=== PATIENT | female | born 1995 | race Caucasian/White ===

== ENCOUNTER 2019-10-16 11:05 | Emergency (ER) | payer BC, SELFPAY ==
--- NOTE | ~2019-10-16 | CT_ITS ---
EXAMINATION: CT abd pelvis lumbar w con DATE: 10/16/2019 12:29 INDICATION: Abdominal pain, low back pain. TECHNIQUE: Computed tomography (CT) of the abdomen and pelvis was performed with 100 cc Omnipaque 350 intravenous contrast. Automated exposure control and iterative reconstruction technique were employe d. Exam dose: 1461.75 mGy-cm total exam DLP. COMPARISON: 11/16/2017 CT abdomen pelvis FINDINGS: Minimal left lower lobe dependent atelectasis. The lung bases are otherwise clear. Normal heart size. No pericardial or pleural effusion. The liver, gallbladder, bile ducts, pancreas, pancreatic duct, spleen, and adrenal glands and kidneys are unremarkable. Normal caliber of the abdominal aorta. No intraperitoneal or retroperitoneal or pelvic mass lesion or adenopathy or ascites. Normal appendix. No bowel obstruction, bowel wall thickening, pneumatosis or intraperitoneal free air . The uterus, adnexal areas and urinary bladder are unremarkable. There is prominent posterior inferior spurring of the L1 vertebral body, encroaching upon the anterio r aspect of the spinal canal. Moderately severe degenerative disc disease is noted at L3-4. IMPRESSION: Moderately severe degenerative disc disease at L3-4 Prominent L1 vertebral body posteroinferior spur Reviewed, dictated and finalized at [facility]. Reviewed, dictated and finalized at [facility].
[2019-10-16 11:09] VITALS: BP 152/92; PULSE 102; RESP 22; TEMP 36.8; O2SAT 98
[2019-10-16 11:48] LABS: Basophils Absolute Auto 0.1 K/mm3 (0.0-0.1); Basophils Percent Auto 0.6 % (0.2-1.2); Eosinophils Absolute Auto 0.4 K/mm3 (0-0.3); Eosinophils Percent Auto 5.1 % (0-4.4); Hematocrit 41.4 % (37.0-47.0); Hemoglobin 13.7 g/dL (12.0-15.0); Immature Granulocyte Absolute 0.03 K/mm3 (0.00-0.031); Immature Granulocyte Percent A 0.4 % (0-0.5); Lymphocytes Absolute Auto 1.57 K/mm3 (0.9-3.2); Lymphocytes Percent Auto 19.9 % (18.3-44.2); Mean Corpuscular HGB Conc 33.1 g/dl (32-36); Mean Corpuscular Hemoglobin 29.1 pg (26-34); Mean Corpuscular Volume 88.1 fl (80-100); Mean Platelet Volume 9.9 fl (7.4-10.4); Monocytes Absolute Auto 0.6 K/mm3 (0.1-0.6); Monocytes Percent Auto 7.1 % (2.6-8.5); Neutrophils Absolute Auto 5.3 K/mm3 (1.3-6.7); Neutrophils Percent Auto 66.9 % (45.5-73.1); Platelet Count Result 194 k/mm3 (150-375); Red Cell Distribution Width 14.8 % (11.5-14.5); White Blood Count 7.9 K/mm3 (4.5-10.0)
[2019-10-16] MEDS: KETOROLAC 30 MG/ML VIAL (*BKC) IV PUSH (11:56)
[2019-10-16 11:59] LABS: Alanine Aminotransferase 18 U/L (4-35); Albumin Level 4.1 g/dL (3.5-5.1); Alkaline Phosphatase 73 U/L (38-126); Aspartate Amino Transferase 21 U/L (14-36); Bilirubin,Total 0.3 mg/dL (0.2-1.3); Blood Urea Nitrogen 11 mg/dL (7-17); Calcium 8.6 mg/dL (8.4-10.2); Carbon Dioxide 22 mmol/L (22-30); Chloride 105 mmol/L (98-107); Estimated CRCL calculation 162 ml/min; Estimated Glomerular Filt Rate > 60; Glucose 105 mg/dL (65-105); Sodium 136 mmol/L (137-145)
[2019-10-16 11:59] LABS: Add Urine Microscopic? NO; Appearance Urine Clear (Clear); Bilirubin Urine Negative (Negative); Blood Urine Negative (Negative); Color Urine Yellow (Yellow); Glucose Urine UA Negative (Negative); Ketones Urine Negative (Negative); Leukocyte Esterase Ur Negative LEU/UL (Negative); Nitrate Urine Negative (Negative); Protein Urine Negative (Negative); Specific Grav Ur 1.016 (1.001-1.035); Urobilinogen Urine Negative mg/dL (<2.0)
[2019-10-16 12:03] LABS: CRP 1.5 mg/dL (<1.0)
--- NOTE | 2019-10-16 12:21 | ED.BACK ---
HPI - Back Pain/Injury General Chief Complaint: Back Pain/Injury <Nhan Hammond PA-C - Last Filed: 10/16/19 13:58> Stated Complaint: low back pain <Nhan Hammond PA-C - Last Filed: 10/16/19 13:58> Time Seen by Provider: 10/16/19 11:14 <Nhan Hammond PA-C - Last Filed: 10/16/19 13:58> Source: patient <Nhan Hammond PA-C - Last Filed: 10/16/19 13:58> Mode of arrival: ambulatory <Nhan Hammond PA-C - Last Filed: 10/16/19 13:58> Limitations: no limitations <Nhan Hammond PA-C - Last Filed: 10/16/19 13:58> History of Present Illness HPI Narrative: Patient is a 23-year-old female who presents with low back pain that has been present for 2 months patient denies injury or trauma had been seeing a chiropractor with no improvement patient notes over the last week the pain has intensified patient has tried [id number] medications with minimal improvement pain radiates into the right thigh patient denies injury or trauma or recent illness pain is worse with activity and movement patient is localized to the midline lower lumbar region <Nhan Hammond PA-C - Last Filed: 10/16/19 13:58> Related Data Allergies/Adverse Reactions: Allergies Allergy/AdvReac Type Severity Reaction Status Date / Time latex Allergy Rash Verified 10/16/19 11:20 menthol [From Icy Hot] Allergy Rash Verified 10/16/19 11:20 methyl salicylate Allergy Rash Verified 10/16/19 11:20 [From Icy Hot] <Nhan Hammond PA-C - Last Filed: 10/16/19 13:58> Review of Systems Review of Systems: All systems reviewed & are unremarkable except as noted in HPI and below <Nhan Hammond PA-C - Last Filed: 10/16/19 13:58> PMFSH Past Medical History Medical History: Medical History (Updated 10/16/19 @ 13:57 by Nhan Hammond PA-C) Obesity <Nhan Hammond PA-C - Last Filed: 10/16/19 13:58> Social History Social History: Social History (Updated 07/25/20 @ 12:23 by Nhan Hammond PA-C) Smoking status: Never smoker <Nhan Hammond PA-C - Last Filed: 10/16/19 13:58> Exam Narrative: Exam Narrative: GENERAL: Well-appearing, obese, and in no acute distress. HEAD: Normocephalic, atraumatic. EYES: PERRLA and EOMI. ENT: Nares clear, no rhinorrhea or epistaxis. Mucous membranes moist. CHEST: Clear to auscultation. No respiratory distress. No wheezes rales or rhonchi HEART: Regular rate and rhythm. No murmur heard. Normal peripheral pulses. ABDOMEN: Soft, nontender, nondistended EXTREMITIES: Normal range of motion. No edema. Midline lumbar tenderness to palpation no deformities noted SKIN: Warm, dry, no rash. NEURO: No focal deficits. Alert and oriented x3. Cranial nerves II through XII gross PSYCH: Normal mood and affect. <Nhan Hammond PA-C - Last Filed: 10/16/19 13:58> Course Course Emergency Course: Patient in the room in no distress aware of case findings treatment plan and diagnosis agreeing to follow-up as directed or to return if symptoms worsen or concerns given fluids and medications in the emergency department with improvement patient afebrile nontoxic-appearing no high risk changes in the blood work or imaging will be referred to primary care for further evaluation as well as instructed to follow-up with her chiropractor her pain management is felt needed <Nhan Hammond PA-C - Last Filed: 10/16/19 13:58> Vital Signs Vital signs: Vital Signs Temperature 98.3 F 10/16/19 11:09 Pulse Rate 102 H 10/16/19 11:09 Respiratory Rate 22 H 10/16/19 11:09 Blood Pressure 152/92 H 10/16/19 11:09 Pulse Oximetry 98 10/16/19 11:09 Temperature 98.3 F 10/16/19 12:36 Pulse Rate 69 10/16/19 12:37 Respiratory Rate 18 10/16/19 12:37 Blood Pressure 148/88 H 10/16/19 12:37 Pulse Oximetry 97 10/16/19 12:37 <ALESSIA Morales Last Filed: 10/16/19 13:58> Vital Signs Temperature 98.3 F 10/16/19 11:09
[2019-10-16 12:22] LABS: Erythrocyte Sedimentation Rate 19 mm/hr (0-20)
[2019-10-16 12:36] VITALS: TEMP 36.8
[2019-10-16 12:37] VITALS: BP 148/88; PULSE 69; RESP 18; O2SAT 97
== END 2019-10-16 14:07 | disposition home or self-care (01) ==
PROVIDERS: Emergency Medicine Emergency Medical Services; Emergency Provider General Practice
DX: M54.16 Radiculopathy, lumbar region (principal); E66.9 Obesity, unspecified; Z68.36 Body mass index [BMI] 36.0-36.9, adult
CPT/HCPCS: 36415; 72132; 74177; 80053; 81003; 81025; 85025; 85652; 86140; 96374; 96375; 99284; J1100; J1885; J3360; Q9967